=== PATIENT | male | born 1985 | race Caucasian/White ===

== ENCOUNTER 2017-08-10 20:40 | Emergency (ER) | payer SELFPAY ==
[2017-08-10 21:40] LABS: OBC FLU VALID
== END 2017-08-10 22:08 | disposition home or self-care (01) ==
LOC: ER 20:40
DX: R05 Cough (principal); M79.1 Myalgia; R68.83 Chills (without fever); F17.200 Nicotine dependence, unspecified, uncomplicated; F12.10 Cannabis abuse, uncomplicated; Z59.0 Homelessness; Z88.2 Allergy status to sulfonamides; Z86.19 Personal history of other infectious and parasitic diseases
CPT/HCPCS: 71020; 87804; 87804-59; 99285-25